=== PATIENT | male | born 1980 | race African-American/Black ===

== ENCOUNTER 2022-01-29 12:21 | Emergency (ER) | payer MEDICAID ==
[~2022-01-29] VITALS: Ht 160 cm; Wt 54.0 kg
[2022-01-29] MEDS ORDERED: P-EP-91 MT (14:32)
[2022-01-29] MEDS ORDERED: DEXTL MT (14:32)
[2022-01-29 15:08] VITALS: BP 125/59
== END 2022-01-29 15:15 | disposition home or self-care (01) ==
LOC: ER 12:35
DX: J06.9 Acute upper respiratory infection, unspecified (principal)
CPT/HCPCS: 99281

== ENCOUNTER 2025-03-29 01:10 | Emergency (ER) | payer MEDICAID, OTHER ==
[~2025-03-29] VITALS: Ht 167.6 cm; Wt 61.3 kg
[~2025-03-29 01:10] MED LIST: DEXTL MT; P-EP-91 MT
[2025-03-29 01:55] VITALS: BP 105/54; TEMP 36.7; O2SAT 99
[2025-03-29 01:57] VITALS: PULSE 86; RESP 18; O2SAT 99
[2025-03-29] MEDS ORDERED: B50 MT (03:41)
== END 2025-03-29 03:49 | disposition home or self-care (01) ==
LOC: ER 01:10
DX: R21 Rash and other nonspecific skin eruption (principal)
CPT/HCPCS: 99282